=== PATIENT | female | born 1950 | race Caucasian/White ===

== ENCOUNTER 2019-04-24 13:37 | Inpatient (IN) ==
[2019-04-24] MEDS ORDERED: *HR* Labetalol 20 MG/4 ML SYRINGE IVP ONE ×2 (14:59→17:04)
[2019-04-24 15:22] LABS: Basophils % 0.6 %; Eosinophils % 0.8 %; Hematocrit 37.9 % (35.3-44.9); Hemoglobin 11.9 g/dL (11.5-15.4); Lymphocytes # 1.6 K/mcL (0.6-4.6); Lymphocytes % 33.9 %; Mean Corpuscular HGB Conc 31.4 g/dL (31.6-35.5); Mean Corpuscular Hemoglobin 29.3 pg (28.0-33.3); Mean Corpuscular Volume 93.3 fL (83.0-100.0); Mean Platelet Volume 10.1 fL (9.4-12.4); Monocytes # 0.2 K/mcL (0.0-1.3); Monocytes % 5.1 %; Neutrophils # 2.8 K/mcL (1.6-8.9); Platelet Count 218 K/mcL (140-400); Red Blood Count 4.06 M/mcL (3.82-4.97); Red Cell Distribution Width 13.5 % (11.5-14.5); Segmented Neutrophils % 59.6 %; White Blood Count 4.8 K/mcL (4.3-11.1)
[2019-04-24] MEDS ORDERED: Isovue-370 500 ML BOTTLE IVP ONE (15:26)
[2019-04-24 15:38] LABS: BUN/Creatinine Ratio 24 (6-26); Blood Urea Nitrogen 19 mg/dL (8-23); Calcium 9.3 mg/dL (8.6-10.3); Carbon Dioxide 27 mEq/L (23-29); Chloride 103 mEq/L (98-107); Glucose 160 mg/dL (70-105); Osmolality,Calculated 292 (280-300); Potassium 3.2 mEq/L (3.5-5.1); Sodium 138 mEq/L (136-145); Troponin I < 0.03 ng/mL (< 0.04); eGFR For African Americans > 60 (> 60); eGFR For Non-African Americans > 60 (> 60)
[2019-04-24] MEDS ORDERED: 0.9 % Sodium Chloride 1,000 ML IVC ONE (15:48)
[2019-04-24] MEDS ORDERED: Naloxone 0.4 MG/ML INJ IVP PRN (19:37)
[2019-04-24] MEDS ORDERED: Ondansetron 4 MG/2 ML VIAL IVP PRN (21:03)
[2019-04-24] MEDS ORDERED: Benzonatate 100 MG CAPSULE PO PRN (21:10)
[2019-04-24] MEDS ORDERED: *HR* HYDROcodone/Acet 5/325 mg TABLET PO PRN (21:10)
[2019-04-24] MEDS ORDERED: Fluticasone Propionate Nasal 50 MCG/SPRAY BOTTLE NS PRN (21:10)
[2019-04-24] MEDS ORDERED: D5% in Water 1,000 ML IVC PRN (21:11)
[2019-04-24] MEDS ORDERED: *HR* Dextrose 50 % in Water (Syg) 50 ML SYRINGE IVP PRN (21:11)
[2019-04-24] MEDS ORDERED: Dextrose Gel 15 GM/37.5 ML TUBE PO PRN ×2 (21:11)
[2019-04-24] MEDS: Insulin DETEMIR 100 UNIT/ML X5UNITS SQ SCH (22:08)
[2019-04-24] MEDS: amLODIPine 5 MG TABLET PO SCH (23:33)
[2019-04-24] MEDS: hydroCHLOROthiazide 25 MG TABLET PO SCH (23:33)
[2019-04-24] MEDS: Lisinopril 20 MG TABLET PO SCH (23:34)
[2019-04-25 00:03] LABS: Bilirubin,Urine Negative (Negative); Blood,Urine Negative (Negative); Clarity,Urine Clear (Clear); Color,Urine Yellow (Yellow); Glucose,Urine (UA) 100 mg/dL (Normal); Ketones,Urine Negative (Negative); Leukocyte Esterase,Urine Small (Negative); Nitrite,Urine Negative (Negative); Protein,Urine Negative (Neg-Trace); Specific Gravity,Urine > 1.030 (1.010-1.025); Urobilinogen,Urine Normal (Normal)
[2019-04-25 00:05] LABS: Bacteria,Urine None Seen per hpf (None-Few); Hyaline Casts,Urine None Seen per lpf (None-Few); RBC,Urine 0-3 per hpf (0-3); Squamous Epithelial Cell,Urine Many per lpf (None-Few)
[2019-04-25 06:45] LABS: Hematocrit 35.3 % (35.3-44.9); Hemoglobin 11.6 g/dL (11.5-15.4); Mean Corpuscular HGB Conc 32.9 g/dL (31.6-35.5); Mean Corpuscular Hemoglobin 28.9 pg (28.0-33.3); Mean Platelet Volume 10.2 fL (9.4-12.4); Platelet Count 211 K/mcL (140-400); Red Blood Count 4.01 M/mcL (3.82-4.97); Red Cell Distribution Width 13.7 % (11.5-14.5); White Blood Count 3.9 K/mcL (4.3-11.1)
[2019-04-25 07:08] LABS: BUN/Creatinine Ratio 17 (6-26); Blood Urea Nitrogen 14 mg/dL (8-23); Calcium 8.9 mg/dL (8.6-10.3); Carbon Dioxide 27 mEq/L (23-29); Chloride 104 mEq/L (98-107); Glucose 205 mg/dL (70-105); Osmolality,Calculated 300 (280-300); Potassium 3.3 mEq/L (3.5-5.1); Sodium 142 mEq/L (136-145); eGFR For African Americans > 60 (> 60); eGFR For Non-African Americans > 60 (> 60)
[2019-04-25 07:15] LABS: Estimated Average Glucose 169 mg/dl
[2019-04-25] MEDS ORDERED: amLODIPine 5 MG TABLET PO SCH (09:00)
[2019-04-25] MEDS ORDERED: Lisinopril 20 MG TABLET PO SCH (09:00)
[2019-04-25] MEDS: Lisinopril 20 MG TABLET PO SCH (10:11)
[2019-04-25] MEDS: FLUoxetine HCl 10 MG CAPSULE PO SCH (10:11)
[2019-04-25] MEDS: Insulin LISPRO 300 UNITS/3 ML VIAL SQ SCH ×3 (10:12→17:02)
[2019-04-25] MEDS: Aspirin Enteric Coated 81 MG Tablet PO SCH (10:12)
[2019-04-25] MEDS: amLODIPine 5 MG TABLET PO SCH (10:12)
[2019-04-25] MEDS: Cholecalciferol (D-3) 1,000 UNIT (25MCG) TABLET PO SCH (10:12)
[2019-04-25] MEDS ORDERED: amLODIPine 5 MG TABLET PO ONE (16:23)
[2019-04-25] MEDS ORDERED: hydroCHLOROthiazide 25 MG TABLET PO SCH (21:00)
[2019-04-25] MEDS: hydroCHLOROthiazide 25 MG TABLET PO SCH (21:33)
[2019-04-25] MEDS: Insulin DETEMIR 100 UNIT/ML X5UNITS SQ SCH (21:34)
[2019-04-26 04:23] LABS: Hematocrit 36.4 % (35.3-44.9); Hemoglobin 11.7 g/dL (11.5-15.4); Mean Corpuscular HGB Conc 32.1 g/dL (31.6-35.5); Mean Corpuscular Hemoglobin 29.3 pg (28.0-33.3); Mean Platelet Volume 10.3 fL (9.4-12.4); Platelet Count 193 K/mcL (140-400); Red Cell Distribution Width 13.7 % (11.5-14.5)
[2019-04-26 04:43] LABS: BUN/Creatinine Ratio 16 (6-26); Blood Urea Nitrogen 15 mg/dL (8-23); Calcium 9.9 mg/dL (8.6-10.3); Carbon Dioxide 26 mEq/L (23-29); Chloride 101 mEq/L (98-107); Glucose 180 mg/dL (70-105); Osmolality,Calculated 285 (280-300); Potassium 3.2 mEq/L (3.5-5.1); Sodium 135 mEq/L (136-145); eGFR For African Americans > 60 (> 60); eGFR For Non-African Americans > 60 (> 60)
[2019-04-26] MEDS: Insulin LISPRO 300 UNITS/3 ML VIAL SQ SCH ×3 (08:22→16:36)
[2019-04-26] MEDS ORDERED: Acetaminophen 325 MG TABLET PO PRN (09:40)
[2019-04-26] MEDS: Metoprolol XL (24 HR) Succ 25 MG TAB.ER.24H PO SCH (10:15)
[2019-04-26] MEDS: Cholecalciferol (D-3) 1,000 UNIT (25MCG) TABLET PO SCH (10:15)
[2019-04-26] MEDS: Lisinopril 20 MG TABLET PO SCH (10:15)
[2019-04-26] MEDS: amLODIPine 5 MG TABLET PO SCH (10:15)
[2019-04-26] MEDS: FLUoxetine HCl 10 MG CAPSULE PO SCH (10:15)
[2019-04-26] MEDS: Aspirin Enteric Coated 81 MG Tablet PO SCH (10:16)
[2019-04-26] MEDS: *HR* Heparin 5,000 UNIT/ML VIAL SQ SCH ×2 (13:12→20:41)
[2019-04-26] MEDS ORDERED: amLODIPine 5 MG TABLET PO ONE (15:07)
[2019-04-26] MEDS: hydrALAZINE 25 MG TABLET PO SCH ×2 (16:36→23:22)
[2019-04-26] MEDS: hydroCHLOROthiazide 25 MG TABLET PO SCH (20:42)
[2019-04-26] MEDS: Insulin DETEMIR 100 UNIT/ML X5UNITS SQ SCH (20:42)
[2019-04-27 02:16] LABS: Hematocrit 36.8 % (35.3-44.9); Hemoglobin 12.2 g/dL (11.5-15.4); Mean Corpuscular HGB Conc 33.2 g/dL (31.6-35.5); Mean Corpuscular Hemoglobin 29.5 pg (28.0-33.3); Mean Corpuscular Volume 88.9 fL (83.0-100.0); Mean Platelet Volume 10.9 fL (9.4-12.4); Platelet Count 210 K/mcL (140-400); Red Blood Count 4.14 M/mcL (3.82-4.97); Red Cell Distribution Width 13.7 % (11.5-14.5); White Blood Count 5.2 K/mcL (4.3-11.1)
[2019-04-27 02:42] LABS: BUN/Creatinine Ratio 23 (6-26); Blood Urea Nitrogen 19 mg/dL (8-23); Calcium 9.6 mg/dL (8.6-10.3); Carbon Dioxide 26 mEq/L (23-29); Chloride 102 mEq/L (98-107); Glucose 203 mg/dL (70-105); Magnesium 1.7 mg/dL (1.6-2.6); Osmolality,Calculated 288 (280-300); Phosphorous 3.6 mg/dL (2.7-4.5); Potassium 3.4 mEq/L (3.5-5.1); Sodium 135 mEq/L (136-145); eGFR For African Americans > 60 (> 60); eGFR For Non-African Americans > 60 (> 60)
[2019-04-27] MEDS: *HR* Heparin 5,000 UNIT/ML VIAL SQ SCH (05:29)
[2019-04-27 07:39] VITALS: BP 136/93
[2019-04-27] MEDS: Aspirin Enteric Coated 81 MG Tablet PO SCH (08:02)
[2019-04-27] MEDS: FLUoxetine HCl 10 MG CAPSULE PO SCH (08:03)
[2019-04-27] MEDS: Lisinopril 20 MG TABLET PO SCH (08:03)
[2019-04-27] MEDS: amLODIPine 5 MG TABLET PO SCH (08:03)
[2019-04-27] MEDS: hydrALAZINE 25 MG TABLET PO SCH (08:03)
[2019-04-27] MEDS: Cholecalciferol (D-3) 1,000 UNIT (25MCG) TABLET PO SCH (08:03)
[2019-04-27] MEDS: Metoprolol XL (24 HR) Succ 25 MG TAB.ER.24H PO SCH (08:04)
[2019-04-27] MEDS: Insulin LISPRO 300 UNITS/3 ML VIAL SQ SCH ×2 (08:04→12:39)
== END 2019-04-27 15:49 | disposition home or self-care (01) | DRG 305 ==
LOC: 2NENU 13:37 → EMEROOARM 13:37 → SUATTDRO 19:56 → 2NENU 21:19 → SUATTDRO 04-25 15:02
PROVIDERS: ADMIT Internal Medicine; ATTEND Internal Medicine

== ENCOUNTER 2019-11-16 14:52 | Inpatient (IN) ==
[2019-11-16 15:38] LABS: Basophils % 0.5 %; Eosinophils # 0.1 K/mcL (0.0-0.6); Eosinophils % 1.1 %; Hematocrit 34.9 % (35.3-44.9); Immature Granulocytes % 0.2 % (0-4); Lymphocytes # 2.5 K/mcL (0.6-4.6); Mean Corpuscular HGB Conc 31.5 g/dL (31.6-35.5); Mean Corpuscular Hemoglobin 29.6 pg (28.0-33.3); Mean Corpuscular Volume 94.1 fL (83.0-100.0); Mean Platelet Volume 10.1 fL (9.4-12.4); Monocytes # 0.4 K/mcL (0.0-1.3); Monocytes % 7.3 %; Neutrophils # 2.6 K/mcL (1.6-8.9); Platelet Count 225 K/mcL (140-400); Red Blood Count 3.71 M/mcL (3.82-4.97); Red Cell Distribution Width 14.7 % (11.5-14.5); Segmented Neutrophils % 46.9 %; White Blood Count 5.6 K/mcL (4.3-11.1)
[2019-11-16 15:56] LABS: BUN/Creatinine Ratio 15 (6-26); Blood Urea Nitrogen 27 mg/dL (8-23); Calcium 9.9 mg/dL (8.6-10.3); Carbon Dioxide 26 mEq/L (23-29); Chloride 101 mEq/L (98-107); Glucose 137 mg/dL (70-105); Osmolality,Calculated 289 (280-300); Potassium 4.5 mEq/L (3.5-5.1); Sodium 136 mEq/L (136-145); Troponin I < 0.03 ng/mL (< 0.04); eGFR For African Americans 33 (> 60); eGFR For Non-African Americans 28 (> 60)
[2019-11-16] MEDS ORDERED: 0.9 % Sodium Chloride 500 ML IVC ONE (16:21)
[2019-11-16] MEDS ORDERED: Nitroglycerin 0.4 MG TAB.SUBL SL PRN (17:01)
[2019-11-16] MEDS ORDERED: Aspirin 325 MG TABLET PO ONE ×2 (17:01→17:11)
[2019-11-16] MEDS ORDERED: Ondansetron 4 MG/2 ML VIAL IVP PRN (17:01)
[2019-11-16] MEDS ORDERED: Morphine Sulfate 2 MG/ML SYRINGE IVP PRN (17:01)
[2019-11-16] MEDS ORDERED: Dextrose Gel 15 GM/37.5 ML TUBE PO PRN ×2 (17:39)
[2019-11-16] MEDS ORDERED: D5% in Water 1,000 ML IVC PRN (17:39)
[2019-11-16] MEDS ORDERED: *HR* Dextrose 50 % in Water (Vial) 50 ML VIAL IVP PRN (17:39)
[2019-11-16 18:00] LABS: Magnesium 1.9 mg/dL (1.6-2.6)
[2019-11-16] MEDS: *HR* Heparin 5,000 UNIT/ML VIAL SQ SCH (18:06)
[2019-11-16] MEDS: 0.9 % Sodium Chloride 1,000 ML IVC SCH (18:07)
[2019-11-16] MEDS: Insulin LISPRO 300 UNITS/3 ML VIAL SQ SCH (20:35)
[2019-11-16] MEDS: hydrALAZINE 25 MG TABLET PO SCH (20:36)
[2019-11-16] MEDS: Gabapentin 300 MG CAPSULE PO SCH (20:36)
[2019-11-16] MEDS: FLUoxetine 20 MG CAPSULE PO SCH (20:36)
[2019-11-16] MEDS ORDERED: hydroCHLOROthiazide 25 MG TABLET PO SCH (21:00)
[2019-11-17] MEDS: 0.9 % Sodium Chloride 1,000 ML IVC SCH (03:49)
[2019-11-17 04:06] LABS: Prothrombin Time 11.6 Seconds (9.4-12.1)
[2019-11-17 04:11] LABS: White Blood Count 4.4 K/mcL (4.3-11.1)
[2019-11-17 04:12] LABS: Basophils % 0.5 %; Eosinophils # 0.1 K/mcL (0.0-0.6); Hematocrit 32.5 % (35.3-44.9); Hemoglobin 10.1 g/dL (11.5-15.4); Lymphocytes # 2.5 K/mcL (0.6-4.6); Lymphocytes % 57.4 %; Mean Corpuscular HGB Conc 31.1 g/dL (31.6-35.5); Mean Corpuscular Hemoglobin 28.8 pg (28.0-33.3); Mean Corpuscular Volume 92.6 fL (83.0-100.0); Mean Platelet Volume 9.9 fL (9.4-12.4); Monocytes # 0.4 K/mcL (0.0-1.3); Monocytes % 8.6 %; Neutrophils # 1.4 K/mcL (1.6-8.9); Platelet Count 201 K/mcL (140-400); Red Blood Count 3.51 M/mcL (3.82-4.97); Red Cell Distribution Width 14.5 % (11.5-14.5); Segmented Neutrophils % 31.5 %
[2019-11-17 04:18] LABS: Alanine Aminotransferase 21 Units/L (7-52); Albumin 3.8 g/dL (3.5-5.7); Albumin/Globulin Ratio 1.2 (1.1-2.2); Alkaline Phosphatase 87 Units/L (34-104); Aspartate Amino Transferase 23 Units/L (13-39); BUN/Creatinine Ratio 21 (6-26); Bilirubin,Total 0.5 mg/dL (0.3-1.0); Blood Urea Nitrogen 23 mg/dL (8-23); Calcium 9.4 mg/dL (8.6-10.3); Carbon Dioxide 24 mEq/L (23-29); Chloride 108 mEq/L (98-107); Globulin 3.2 g/dL (2.4-3.5); Glucose 133 mg/dL (70-105); Magnesium 1.8 mg/dL (1.6-2.6); Osmolality,Calculated 292 (280-300); Potassium 4.3 mEq/L (3.5-5.1); Sodium 138 mEq/L (136-145); eGFR For African Americans > 60 (> 60); eGFR For Non-African Americans 50 (> 60)
[2019-11-17] MEDS: *HR* Heparin 5,000 UNIT/ML VIAL SQ SCH ×2 (05:00→17:52)
[2019-11-17] MEDS ORDERED: Regadenoson 0.4 MG/5 ML SYRINGE IVP ONE (06:21)
[2019-11-17] MEDS: Insulin LISPRO 300 UNITS/3 ML VIAL SQ SCH ×4 (07:54→21:45)
[2019-11-17] MEDS: Cholecalciferol (D-3) 1,000 UNIT (25MCG) TABLET PO SCH (11:45)
[2019-11-17] MEDS: Aspirin 81 MG TAB.CHEW PO SCH (11:46)
[2019-11-17] MEDS: amLODIPine 5 MG TABLET PO SCH (11:46)
[2019-11-17] MEDS: hydrALAZINE 25 MG TABLET PO SCH ×2 (11:46→21:46)
[2019-11-17] MEDS ORDERED: Perflutren Lipid Microsphere 1.3 ML in 0.9 % Sodium Chloride 8.7 ML IVP ONE (20:42)
[2019-11-17] MEDS: FLUoxetine 20 MG CAPSULE PO SCH (21:46)
[2019-11-17] MEDS: Gabapentin 300 MG CAPSULE PO SCH (21:46)
[2019-11-18] MEDS: *HR* Heparin 5,000 UNIT/ML VIAL SQ SCH (04:48)
[2019-11-18 06:17] LABS: Basophils % 0.7 %; Eosinophils # 0.1 K/mcL (0.0-0.6); Eosinophils % 1.7 %; Hematocrit 34.7 % (35.3-44.9); Hemoglobin 10.5 g/dL (11.5-15.4); Lymphocytes # 2.2 K/mcL (0.6-4.6); Lymphocytes % 52.7 %; Mean Corpuscular HGB Conc 30.3 g/dL (31.6-35.5); Mean Corpuscular Hemoglobin 28.2 pg (28.0-33.3); Mean Platelet Volume 10.3 fL (9.4-12.4); Monocytes # 0.3 K/mcL (0.0-1.3); Monocytes % 7.8 %; Neutrophils # 1.5 K/mcL (1.6-8.9); Platelet Count 200 K/mcL (140-400); Red Blood Count 3.73 M/mcL (3.82-4.97); Segmented Neutrophils % 37.1 %; White Blood Count 4.1 K/mcL (4.3-11.1)
[2019-11-18 06:39] LABS: BUN/Creatinine Ratio 19 (6-26); Blood Urea Nitrogen 20 mg/dL (8-23); Calcium 9.7 mg/dL (8.6-10.3); Carbon Dioxide 23 mEq/L (23-29); Chloride 105 mEq/L (98-107); Glucose 114 mg/dL (70-105); Osmolality,Calculated 283 (280-300); Sodium 135 mEq/L (136-145); eGFR For African Americans > 60 (> 60); eGFR For Non-African Americans 52 (> 60)
[2019-11-18 07:05] VITALS: BP 121/72
[2019-11-18] MEDS: Insulin LISPRO 300 UNITS/3 ML VIAL SQ SCH (07:56)
[2019-11-18] MEDS: Cholecalciferol (D-3) 1,000 UNIT (25MCG) TABLET PO SCH (09:30)
[2019-11-18] MEDS: amLODIPine 5 MG TABLET PO SCH (09:30)
[2019-11-18] MEDS: Aspirin 81 MG TAB.CHEW PO SCH (09:31)
[2019-11-18] MEDS: hydrALAZINE 25 MG TABLET PO SCH (09:31)
== END 2019-11-18 12:58 | disposition home or self-care (01) | DRG 313 ==
LOC: EMEROOARM 14:52 → 3BNU 14:52
PROVIDERS: ADMIT Internal Medicine; ATTEND Internal Medicine

== ENCOUNTER 2020-05-27 20:43 | Inpatient (IN) ==
[2020-05-27 21:42] LABS: INR 1.2
[2020-05-27 21:44] LABS: Activated Partial Thrombo Time 26.1 Seconds (26.0-36.0)
[2020-05-27 22:00] LABS: Alanine Aminotransferase 18 Units/L (7-52); Albumin/Globulin Ratio 1.1 (1.1-2.2); Alkaline Phosphatase 67 Units/L (34-104); Aspartate Amino Transferase 26 Units/L (13-39); BUN/Creatinine Ratio 18 (6-26); Bilirubin,Direct 0.1 mg/dL (0.0-0.2); Bilirubin,Indirect 0.4 mg/dL (0.0-1.0); Bilirubin,Total 0.5 mg/dL (0.3-1.0); Blood Urea Nitrogen 14 mg/dL (8-23); Carbon Dioxide 21 mEq/L (23-29); Chloride 100 mEq/L (98-107); Globulin 3.7 g/dL (2.4-3.5); Glucose 194 mg/dL (70-105); Lactate Dehydrogenase 213 Units/L (140-271); Magnesium 1.6 mg/dL (1.6-2.6); Osmolality,Calculated 276 (280-300); Phosphorous 2.6 mg/dL (2.7-4.5); Potassium 3.3 mEq/L (3.5-5.1); Sodium 130 mEq/L (136-145); Total Protein 7.7 g/dL (6.4-8.9); Troponin I < 0.03 ng/mL (< 0.04); eGFR For African Americans > 60 (> 60); eGFR For Non-African Americans > 60 (> 60)
[2020-05-27 22:01] LABS: Basophils % 0.3 %; Hematocrit 35.7 % (35.3-44.9); Hemoglobin 11.3 g/dL (11.5-15.4); Immature Granulocytes % 0.3 % (0-4); Lymphocytes # 0.9 K/mcL (0.6-4.6); Lymphocytes % 24.9 %; Mean Corpuscular HGB Conc 31.7 g/dL (31.6-35.5); Mean Corpuscular Hemoglobin 27.9 pg (28.0-33.3); Mean Corpuscular Volume 88.1 fL (83.0-100.0); Mean Platelet Volume 10.3 fL (9.4-12.4); Monocytes # 0.2 K/mcL (0.0-1.3); Monocytes % 6.8 %; Neutrophils # 2.4 K/mcL (1.6-8.9); Platelet Count 176 K/mcL (140-400); Red Blood Count 4.05 M/mcL (3.82-4.97); Red Cell Distribution Width 13.7 % (11.5-14.5); Segmented Neutrophils % 67.7 %; White Blood Count 3.5 K/mcL (4.3-11.1)
[2020-05-27 22:06] LABS: Bilirubin,Urine Small (Negative); Blood,Urine Negative (Negative); Clarity,Urine Clear (Clear); Color,Urine Yellow (Yellow); Glucose,Urine (UA) Normal (Normal); Ketones,Urine 15 mg/dL (Negative); Leukocyte Esterase,Urine Negative (Negative); Nitrite,Urine Positive (Negative); Protein,Urine 100 mg/dL (Neg-Trace); Specific Gravity,Urine 1.025 (1.010-1.025); Urobilinogen,Urine Normal (Normal)
[2020-05-27 22:14] LABS: RBC,Urine 0-3 per hpf (0-3); Squamous Epithelial Cell,Urine Few per hpf (None-Few); WBC,Urine 0-3 per hpf (0-3)
[2020-05-27] MEDS ORDERED: Azithromycin 500 MG in 0.9 % Sodium Chloride 250 ML IVPB ONE (22:14)
[2020-05-27] MEDS ORDERED: Ipratropium/Albuterol Neb 3 ML IH ONE (22:14)
[2020-05-27 22:15] LABS: Bacteria,Urine Many per hpf (None-Few); Mucus,Urine Moderate per lpf (None-Few)
[2020-05-27 22:15] LABS: Ferritin 255 ng/mL (10-120)
[2020-05-27] MEDS ORDERED: Ondansetron 4 MG/2 ML VIAL IVP ONE (22:17)
[2020-05-27] MEDS ORDERED: Potassium Chloride Elixir 20 MEQ/15 ML UDC PO ONE (22:17)
[2020-05-27] MEDS ORDERED: levoFLOXacin 750 MG/150 ML 750 MG/150 ML BAG IVPB ONE (22:26)
[2020-05-27] MEDS ORDERED: Naloxone 0.4 MG/ML INJ IVP PRN (22:29)
[2020-05-27] MEDS ORDERED: Ondansetron 4 MG/2 ML VIAL IVP PRN (22:29)
[2020-05-27] MEDS ORDERED: *HR* Dextrose 50 % in Water (Vial) 50 ML VIAL IVP PRN (22:33)
[2020-05-27] MEDS ORDERED: Dextrose Gel 15 GM/37.5 ML TUBE PO PRN ×2 (22:33)
[2020-05-27] MEDS ORDERED: D5% in Water 1,000 ML IVC PRN (22:33)
[2020-05-27 22:40] LABS: C-Reactive Protein 20 mg/L (Less than 10)
[2020-05-28] MEDS: *HR* Enoxaparin 40 MG/0.4 ML SYRINGE SQ SCH (04:26)
[2020-05-28 06:05] LABS: Hematocrit 33.7 % (35.3-44.9); Hemoglobin 10.6 g/dL (11.5-15.4); Immature Granulocytes % 0.4 % (0-4); Lymphocytes # 0.5 K/mcL (0.6-4.6); Lymphocytes % 22.5 %; Mean Corpuscular HGB Conc 31.5 g/dL (31.6-35.5); Mean Corpuscular Hemoglobin 27.4 pg (28.0-33.3); Mean Corpuscular Volume 87.1 fL (83.0-100.0); Mean Platelet Volume 10.1 fL (9.4-12.4); Monocytes # 0.1 K/mcL (0.0-1.3); Neutrophils # 1.8 K/mcL (1.6-8.9); Platelet Count 169 K/mcL (140-400); Red Blood Count 3.87 M/mcL (3.82-4.97); Red Cell Distribution Width 13.7 % (11.5-14.5); Segmented Neutrophils % 74.1 %; White Blood Count 2.4 K/mcL (4.3-11.1)
[2020-05-28 06:39] LABS: INR 1.1; Prothrombin Time 13.2 Seconds (9.4-12.1)
[2020-05-28 08:02] LABS: BUN/Creatinine Ratio 17 (6-26); Blood Urea Nitrogen 13 mg/dL (8-23); Carbon Dioxide 22 mEq/L (23-29); Chloride 101 mEq/L (98-107); Glucose 262 mg/dL (70-105); Magnesium 1.8 mg/dL (1.6-2.6); Osmolality,Calculated 285 (280-300); Potassium 4.4 mEq/L (3.5-5.1); Sodium 133 mEq/L (136-145); eGFR For African Americans > 60 (> 60); eGFR For Non-African Americans > 60 (> 60)
[2020-05-28 08:03] LABS: Alanine Aminotransferase 17 Units/L (7-52); Albumin 3.8 g/dL (3.5-5.7); Alkaline Phosphatase 63 Units/L (34-104); Aspartate Amino Transferase 22 Units/L (13-39); Ferritin 261 ng/mL (10-120); Lactate Dehydrogenase 204 Units/L (140-271)
[2020-05-28] MEDS ORDERED: Benzonatate 100 MG CAPSULE PO PRN (08:35)
[2020-05-28] MEDS ORDERED: traZODone 50 MG TABLET PO PRN (08:35)
[2020-05-28] MEDS ORDERED: Chloraseptic Spray 177 ML BOTTLE MM PRN (08:35)
[2020-05-28] MEDS ORDERED: Furosemide 20 MG/2 ML VIAL IVP SCH (09:00)
[2020-05-28] MEDS ORDERED: levoFLOXacin 250 MG TABLET PO SCH (09:00)
[2020-05-28] MEDS ORDERED: Dexamethasone Sodium Phos/PF 10 MG/ML VIAL IVP SCH (09:00)
[2020-05-28 09:22] LABS: Albumin/Globulin Ratio 1.1 (1.1-2.2); Bilirubin,Total 0.5 mg/dL (0.3-1.0); C-Reactive Protein 25 mg/L (Less than 10); Globulin 3.6 g/dL (2.4-3.5); Phosphorous 3.5 mg/dL (2.7-4.5); Total Protein 7.4 g/dL (6.4-8.9)
[2020-05-28] MEDS: Insulin LISPRO 300 UNITS/3 ML VIAL SUBQ SCH ×3 (09:34→18:09)
[2020-05-28] MEDS: Chlorhexidine Rinse 15 ML MOUTHWASH MM SCH ×2 (09:35→20:36)
[2020-05-28] MEDS: Artificial Tears SOLN 15 ML BOTTLE BOTH EYES SCH ×2 (09:35→20:37)
[2020-05-28] MEDS: Saline Nasal Spray 44 ML BOTTLE NS SCH ×4 (09:35→20:37)
[2020-05-28] MEDS: Multivit/Ca/Min/Fe/FA 1 TAB TABLET PO SCH (09:39)
[2020-05-28] MEDS ORDERED: Ipratropium 1 PUFF INHALER IH SCH (10:00)
[2020-05-28 10:39] LABS: ABG Base Excess -2 mEq/L (-2 to 3); ABG HCO3 21 mEq/L (21-27); ABG Oxygen Saturation 80 % (95-98); ABG PCO2 29 mmHg (35-45); ABG PH 7.46 pH Units (7.32-7.45); ABG PO2 41 mmHg (85-104); ABG TCO2 22 mEq/L (20-26)
[2020-05-28] MEDS: Ipratropium 1 PUFF INHALER IH SCH ×4 (15:04→23:47)
[2020-05-28] MEDS: Gabapentin 300 MG CAPSULE PO SCH (20:36)
[2020-05-28] MEDS: FLUoxetine 20 MG CAPSULE PO SCH (20:36)
[2020-05-28] MEDS ORDERED: Insulin DETEMIR 100 UNIT/ML X5UNITS SUBQ SCH (21:00)
[2020-05-29] MEDS: Saline Nasal Spray 44 ML BOTTLE NS SCH ×5 (00:30→21:26)
[2020-05-29] MEDS: Ipratropium 1 PUFF INHALER IH SCH ×6 (03:37→23:42)
[2020-05-29] MEDS: *HR* Enoxaparin 40 MG/0.4 ML SYRINGE SQ SCH (05:23)
[2020-05-29 06:21] LABS: Basophils % 0.1 %; Hematocrit 34.4 % (35.3-44.9); Hemoglobin 10.8 g/dL (11.5-15.4); Immature Granulocytes % 0.3 % (0-4); Lymphocytes % 9.1 %; Mean Corpuscular HGB Conc 31.4 g/dL (31.6-35.5); Mean Corpuscular Hemoglobin 27.5 pg (28.0-33.3); Mean Corpuscular Volume 87.5 fL (83.0-100.0); Mean Platelet Volume 10.1 fL (9.4-12.4); Monocytes # 0.5 K/mcL (0.0-1.3); Monocytes % 6.5 %; Platelet Count 205 K/mcL (140-400); Red Blood Count 3.93 M/mcL (3.82-4.97); Red Cell Distribution Width 13.3 % (11.5-14.5)
[2020-05-29 06:22] LABS: Lymphocytes # 0.7 K/mcL (0.6-4.6); White Blood Count 7.1 K/mcL (4.3-11.1)
[2020-05-29 06:45] LABS: Alanine Aminotransferase 18 Units/L (7-52); Albumin 3.8 g/dL (3.5-5.7); Alkaline Phosphatase 61 Units/L (34-104); Aspartate Amino Transferase 21 Units/L (13-39); BUN/Creatinine Ratio 24 (6-26); Bilirubin,Total 0.4 mg/dL (0.3-1.0); Blood Urea Nitrogen 20 mg/dL (8-23); Calcium 9.4 mg/dL (8.6-10.3); Carbon Dioxide 22 mEq/L (23-29); Chloride 101 mEq/L (98-107); Globulin 3.7 g/dL (2.4-3.5); Glucose 231 mg/dL (70-105); Lactate Dehydrogenase 199 Units/L (140-271); Magnesium 2.1 mg/dL (1.6-2.6); Osmolality,Calculated 286 (280-300); Phosphorous 3.8 mg/dL (2.7-4.5); Potassium 3.6 mEq/L (3.5-5.1); Sodium 133 mEq/L (136-145); Total Protein 7.5 g/dL (6.4-8.9); eGFR For African Americans > 60 (> 60); eGFR For Non-African Americans > 60 (> 60)
[2020-05-29 06:59] LABS: Ferritin 306 ng/mL (10-120)
[2020-05-29 07:48] LABS: C-Reactive Protein 15 mg/L (Less than 10)
[2020-05-29] MEDS: Insulin LISPRO 300 UNITS/3 ML VIAL SUBQ SCH ×3 (08:45→17:22)
[2020-05-29] MEDS: Chlorhexidine Rinse 15 ML MOUTHWASH MM SCH ×2 (08:46→19:47)
[2020-05-29] MEDS: Artificial Tears SOLN 15 ML BOTTLE BOTH EYES SCH ×2 (08:46→21:25)
[2020-05-29] MEDS: Dexamethasone Sodium Phos/PF 10 MG/ML VIAL IVP SCH (08:46)
[2020-05-29] MEDS: Furosemide 20 MG/2 ML VIAL IVP SCH (08:46)
[2020-05-29] MEDS: Multivit/Ca/Min/Fe/FA 1 TAB TABLET PO SCH (08:47)
[2020-05-29] MEDS: Cholecalciferol (D-3) 1,000 UNIT (25MCG) TABLET PO SCH (08:47)
[2020-05-29] MEDS ORDERED: levoFLOXacin 250 MG TABLET PO ONE (16:08)
[2020-05-29] MEDS: FLUoxetine 20 MG CAPSULE PO SCH (19:47)
[2020-05-29] MEDS: Gabapentin 300 MG CAPSULE PO SCH (19:47)
[2020-05-29] MEDS: Insulin DETEMIR 100 UNIT/ML X5UNITS SUBQ SCH (21:00)
[2020-05-30] MEDS: Saline Nasal Spray 44 ML BOTTLE NS SCH ×4 (02:00→21:00)
[2020-05-30] MEDS: Ipratropium 1 PUFF INHALER IH SCH ×5 (04:04→20:18)
[2020-05-30] MEDS: *HR* Enoxaparin 40 MG/0.4 ML SYRINGE SQ SCH (05:26)
[2020-05-30] MEDS: Acetaminophen 325 MG TABLET PO PRN ×2 (05:59→20:00)
[2020-05-30 06:37] LABS: Basophils % 0.1 %; Hematocrit 35.8 % (35.3-44.9); Hemoglobin 11.7 g/dL (11.5-15.4); Lymphocytes # 0.6 K/mcL (0.6-4.6); Mean Corpuscular HGB Conc 32.7 g/dL (31.6-35.5); Mean Corpuscular Hemoglobin 28.5 pg (28.0-33.3); Mean Corpuscular Volume 87.1 fL (83.0-100.0); Mean Platelet Volume 9.7 fL (9.4-12.4); Monocytes # 0.4 K/mcL (0.0-1.3); Monocytes % 4.8 %; Neutrophils # 7.8 K/mcL (1.6-8.9); Platelet Count 242 K/mcL (140-400); Red Blood Count 4.11 M/mcL (3.82-4.97); Red Cell Distribution Width 13.6 % (11.5-14.5); Segmented Neutrophils % 87.1 %; White Blood Count 8.9 K/mcL (4.3-11.1)
[2020-05-30 07:02] LABS: Alanine Aminotransferase 19 Units/L (7-52); Albumin 3.9 g/dL (3.5-5.7); Alkaline Phosphatase 65 Units/L (34-104); Aspartate Amino Transferase 20 Units/L (13-39); BUN/Creatinine Ratio 30 (6-26); Bilirubin,Total 0.5 mg/dL (0.3-1.0); Blood Urea Nitrogen 28 mg/dL (8-23); Calcium 9.6 mg/dL (8.6-10.3); Carbon Dioxide 24 mEq/L (23-29); Chloride 97 mEq/L (98-107); Globulin 3.9 g/dL (2.4-3.5); Glucose 188 mg/dL (70-105); Lactate Dehydrogenase 218 Units/L (140-271); Magnesium 1.8 mg/dL (1.6-2.6); Osmolality,Calculated 286 (280-300); Phosphorous 2.3 mg/dL (2.7-4.5); Potassium 3.8 mEq/L (3.5-5.1); Sodium 133 mEq/L (136-145); Total Protein 7.8 g/dL (6.4-8.9); eGFR For African Americans > 60 (> 60); eGFR For Non-African Americans 59 (> 60)
[2020-05-30 07:14] LABS: Ferritin 284 ng/mL (10-120)
[2020-05-30] MEDS: Dexamethasone Sodium Phos/PF 10 MG/ML VIAL IVP SCH (08:53)
[2020-05-30] MEDS: Chlorhexidine Rinse 15 ML MOUTHWASH MM SCH ×2 (08:54→20:04)
[2020-05-30] MEDS: Cholecalciferol (D-3) 1,000 UNIT (25MCG) TABLET PO SCH (08:54)
[2020-05-30] MEDS: Furosemide 20 MG/2 ML VIAL IVP SCH (08:54)
[2020-05-30] MEDS: Multivit/Ca/Min/Fe/FA 1 TAB TABLET PO SCH (08:54)
[2020-05-30] MEDS: Insulin LISPRO 300 UNITS/3 ML VIAL SUBQ SCH ×2 (08:55→13:00)
[2020-05-30] MEDS: Artificial Tears SOLN 15 ML BOTTLE BOTH EYES SCH ×2 (09:42→22:00)
[2020-05-30 13:31] LABS: C-Reactive Protein 28 mg/L (Less than 10)
[2020-05-30] MEDS: FLUoxetine 20 MG CAPSULE PO SCH (19:59)
[2020-05-30] MEDS: Gabapentin 300 MG CAPSULE PO SCH (20:02)
[2020-05-30] MEDS: Insulin DETEMIR 100 UNIT/ML X5UNITS SUBQ SCH (20:32)
[2020-05-31] MEDS: Ipratropium 1 PUFF INHALER IH SCH ×6 (00:17→20:37)
[2020-05-31] MEDS: Saline Nasal Spray 44 ML BOTTLE NS SCH ×7 (01:58→16:12)
[2020-05-31] MEDS: *HR* Enoxaparin 40 MG/0.4 ML SYRINGE SQ SCH (05:39)
[2020-05-31] MEDS: Insulin LISPRO 300 UNITS/3 ML VIAL SUBQ SCH ×4 (07:43→16:18)
[2020-05-31 08:05] LABS: Basophils % 0.1 %; Hemoglobin 11.3 g/dL (11.5-15.4); Immature Granulocytes % 0.7 % (0-4); Lymphocytes # 0.6 K/mcL (0.6-4.6); Lymphocytes % 8.3 %; Mean Corpuscular HGB Conc 31.4 g/dL (31.6-35.5); Mean Corpuscular Hemoglobin 27.3 pg (28.0-33.3); Monocytes # 0.4 K/mcL (0.0-1.3); Monocytes % 5.6 %; Platelet Count 258 K/mcL (140-400); Red Blood Count 4.14 M/mcL (3.82-4.97); Red Cell Distribution Width 13.7 % (11.5-14.5); Segmented Neutrophils % 85.3 %; White Blood Count 7.1 K/mcL (4.3-11.1)
[2020-05-31 08:23] LABS: Alanine Aminotransferase 19 Units/L (7-52); Albumin 3.7 g/dL (3.5-5.7); Albumin/Globulin Ratio 0.9 (1.1-2.2); Alkaline Phosphatase 64 Units/L (34-104); Aspartate Amino Transferase 19 Units/L (13-39); BUN/Creatinine Ratio 38 (6-26); Bilirubin,Total 0.6 mg/dL (0.3-1.0); Blood Urea Nitrogen 30 mg/dL (8-23); Calcium 9.5 mg/dL (8.6-10.3); Carbon Dioxide 28 mEq/L (23-29); Chloride 97 mEq/L (98-107); Glucose 219 mg/dL (70-105); Lactate Dehydrogenase 205 Units/L (140-271); Magnesium 2.1 mg/dL (1.6-2.6); Osmolality,Calculated 295 (280-300); Phosphorous 3.4 mg/dL (2.7-4.5); Potassium 3.5 mEq/L (3.5-5.1); Sodium 136 mEq/L (136-145); Total Protein 7.7 g/dL (6.4-8.9); eGFR For African Americans > 60 (> 60); eGFR For Non-African Americans > 60 (> 60)
[2020-05-31 08:30] LABS: Ferritin 381 ng/mL (10-120)
[2020-05-31 08:39] LABS: C-Reactive Protein 52 mg/L (Less than 10)
[2020-05-31] MEDS: Chlorhexidine Rinse 15 ML MOUTHWASH MM SCH ×2 (09:25→20:20)
[2020-05-31] MEDS: Multivit/Ca/Min/Fe/FA 1 TAB TABLET PO SCH (09:25)
[2020-05-31] MEDS: Dexamethasone Sodium Phos/PF 10 MG/ML VIAL IVP SCH (09:26)
[2020-05-31] MEDS: Cholecalciferol (D-3) 1,000 UNIT (25MCG) TABLET PO SCH (09:26)
[2020-05-31] MEDS: Artificial Tears SOLN 15 ML BOTTLE BOTH EYES SCH ×2 (09:27→20:33)
[2020-05-31] MEDS ORDERED: Furosemide 40 MG/4 ML VIAL IVP ONE (14:28)
[2020-05-31] MEDS ORDERED: Insulin LISPRO 300 UNITS/3 ML VIAL SUBQ SCH (14:42)
[2020-05-31] MEDS: FLUoxetine 20 MG CAPSULE PO SCH (20:19)
[2020-05-31] MEDS: Gabapentin 300 MG CAPSULE PO SCH (20:20)
[2020-05-31] MEDS: Insulin DETEMIR 100 UNIT/ML X5UNITS SUBQ SCH (20:20)
[2020-06-01] MEDS: Ipratropium 1 PUFF INHALER IH SCH ×6 (00:24→20:49)
[2020-06-01 01:33] LABS: Basophils % 0.2 %; Hematocrit 35.6 % (35.3-44.9); Hemoglobin 11.5 g/dL (11.5-15.4); Immature Granulocytes % 0.8 % (0-4); Lymphocytes # 0.8 K/mcL (0.6-4.6); Lymphocytes % 13.2 %; Mean Corpuscular HGB Conc 32.3 g/dL (31.6-35.5); Mean Corpuscular Hemoglobin 28.4 pg (28.0-33.3); Mean Corpuscular Volume 87.9 fL (83.0-100.0); Mean Platelet Volume 9.7 fL (9.4-12.4); Monocytes # 0.4 K/mcL (0.0-1.3); Monocytes % 5.7 %; Neutrophils # 5.1 K/mcL (1.6-8.9); Platelet Count 259 K/mcL (140-400); Red Blood Count 4.05 M/mcL (3.82-4.97); Red Cell Distribution Width 13.5 % (11.5-14.5); Segmented Neutrophils % 80.1 %; White Blood Count 6.3 K/mcL (4.3-11.1)
[2020-06-01 01:58] LABS: BUN/Creatinine Ratio 36 (6-26); Blood Urea Nitrogen 26 mg/dL (8-23); C-Reactive Protein 38 mg/L (Less than 10); Calcium 9.3 mg/dL (8.6-10.3); Carbon Dioxide 27 mEq/L (23-29); Chloride 95 mEq/L (98-107); Glucose 227 mg/dL (70-105); Osmolality,Calculated 288 (280-300); Potassium 3.7 mEq/L (3.5-5.1); Sodium 133 mEq/L (136-145); eGFR For African Americans > 60 (> 60); eGFR For Non-African Americans > 60 (> 60)
[2020-06-01 02:13] LABS: Ferritin 436 ng/mL (10-120)
[2020-06-01] MEDS: *HR* Enoxaparin 40 MG/0.4 ML SYRINGE SQ SCH (05:20)
[2020-06-01] MEDS: Saline Nasal Spray 44 ML BOTTLE NS SCH ×7 (07:45→20:24)
[2020-06-01] MEDS: Insulin LISPRO 300 UNITS/3 ML VIAL SUBQ SCH ×3 (08:01→16:54)
[2020-06-01] MEDS: Multivit/Ca/Min/Fe/FA 1 TAB TABLET PO SCH (08:03)
[2020-06-01] MEDS: Cholecalciferol (D-3) 1,000 UNIT (25MCG) TABLET PO SCH (08:03)
[2020-06-01] MEDS: Chlorhexidine Rinse 15 ML MOUTHWASH MM SCH ×2 (08:03→20:23)
[2020-06-01] MEDS: Furosemide 20 MG/2 ML VIAL IVP SCH (08:03)
[2020-06-01] MEDS: Artificial Tears SOLN 15 ML BOTTLE BOTH EYES SCH ×2 (08:04→20:24)
[2020-06-01] MEDS: Dexamethasone Sodium Phos/PF 10 MG/ML VIAL IVP SCH (08:04)
[2020-06-01] MEDS: Gabapentin 300 MG CAPSULE PO SCH (20:23)
[2020-06-01] MEDS: Insulin DETEMIR 100 UNIT/ML X5UNITS SUBQ SCH (20:23)
[2020-06-01] MEDS: FLUoxetine 20 MG CAPSULE PO SCH (20:23)
[2020-06-02] MEDS: Ipratropium 1 PUFF INHALER IH SCH ×7 (00:20→20:42)
[2020-06-02] MEDS: Saline Nasal Spray 44 ML BOTTLE NS SCH ×5 (04:13→20:27)
[2020-06-02] MEDS: *HR* Enoxaparin 40 MG/0.4 ML SYRINGE SQ SCH (05:23)
[2020-06-02 07:21] LABS: Basophils % 0.2 %; Hematocrit 36.7 % (35.3-44.9); Hemoglobin 11.7 g/dL (11.5-15.4); Immature Granulocytes % 0.6 % (0-4); Lymphocytes % 18.5 %; Mean Corpuscular HGB Conc 31.9 g/dL (31.6-35.5); Mean Corpuscular Hemoglobin 27.9 pg (28.0-33.3); Mean Corpuscular Volume 87.6 fL (83.0-100.0); Mean Platelet Volume 9.7 fL (9.4-12.4); Monocytes # 0.4 K/mcL (0.0-1.3); Monocytes % 8.2 %; Neutrophils # 3.8 K/mcL (1.6-8.9); Platelet Count 291 K/mcL (140-400); Red Blood Count 4.19 M/mcL (3.82-4.97); Red Cell Distribution Width 13.5 % (11.5-14.5); Segmented Neutrophils % 72.5 %; White Blood Count 5.2 K/mcL (4.3-11.1)
[2020-06-02 07:45] LABS: BUN/Creatinine Ratio 42 (6-26); Blood Urea Nitrogen 35 mg/dL (8-23); Calcium 9.5 mg/dL (8.6-10.3); Carbon Dioxide 29 mEq/L (23-29); Chloride 96 mEq/L (98-107); Glucose 154 mg/dL (70-105); Osmolality,Calculated 293 (280-300); Potassium 3.2 mEq/L (3.5-5.1); Sodium 136 mEq/L (136-145); eGFR For African Americans > 60 (> 60); eGFR For Non-African Americans > 60 (> 60)
[2020-06-02 07:59] LABS: Ferritin 438 ng/mL (10-120)
[2020-06-02] MEDS: Insulin LISPRO 300 UNITS/3 ML VIAL SUBQ SCH ×3 (08:25→17:21)
[2020-06-02] MEDS: Chlorhexidine Rinse 15 ML MOUTHWASH MM SCH ×2 (08:27→20:26)
[2020-06-02] MEDS: Dexamethasone Sodium Phos/PF 10 MG/ML VIAL IVP SCH (08:27)
[2020-06-02] MEDS: Furosemide 20 MG/2 ML VIAL IVP SCH (08:27)
[2020-06-02] MEDS: Cholecalciferol (D-3) 1,000 UNIT (25MCG) TABLET PO SCH (08:27)
[2020-06-02] MEDS: Multivit/Ca/Min/Fe/FA 1 TAB TABLET PO SCH (08:27)
[2020-06-02] MEDS: Artificial Tears SOLN 15 ML BOTTLE BOTH EYES SCH ×2 (09:29→20:28)
[2020-06-02 10:51] LABS: C-Reactive Protein 22 mg/L (Less than 10)
[2020-06-02] MEDS: FLUoxetine 20 MG CAPSULE PO SCH (20:26)
[2020-06-02] MEDS: Gabapentin 300 MG CAPSULE PO SCH (20:26)
[2020-06-02] MEDS: Insulin DETEMIR 100 UNIT/ML X5UNITS SUBQ SCH (20:26)
[2020-06-03] MEDS: Ipratropium 1 PUFF INHALER IH SCH ×7 (00:36→23:20)
[2020-06-03] MEDS: Saline Nasal Spray 44 ML BOTTLE NS SCH ×6 (01:26→20:22)
[2020-06-03 05:15] LABS: Basophils % 0.2 %; Eosinophils % 0.2 %; Hematocrit 39.4 % (35.3-44.9); Hemoglobin 12.5 g/dL (11.5-15.4); Immature Granulocytes % 0.7 % (0-4); Lymphocytes # 1.1 K/mcL (0.6-4.6); Lymphocytes % 20.6 %; Mean Corpuscular HGB Conc 31.7 g/dL (31.6-35.5); Mean Corpuscular Volume 88.1 fL (83.0-100.0); Mean Platelet Volume 9.5 fL (9.4-12.4); Monocytes # 0.4 K/mcL (0.0-1.3); Monocytes % 7.8 %; Neutrophils # 3.9 K/mcL (1.6-8.9); Platelet Count 320 K/mcL (140-400); Red Blood Count 4.47 M/mcL (3.82-4.97); Red Cell Distribution Width 13.2 % (11.5-14.5); Segmented Neutrophils % 70.5 %; White Blood Count 5.5 K/mcL (4.3-11.1)
[2020-06-03 05:29] LABS: BUN/Creatinine Ratio 46 (6-26); Blood Urea Nitrogen 37 mg/dL (8-23); C-Reactive Protein 15 mg/L (Less than 10); Calcium 9.5 mg/dL (8.6-10.3); Carbon Dioxide 31 mEq/L (23-29); Chloride 95 mEq/L (98-107); Glucose 148 mg/dL (70-105); Osmolality,Calculated 295 (280-300); Potassium 3.4 mEq/L (3.5-5.1); Sodium 137 mEq/L (136-145); eGFR For African Americans > 60 (> 60); eGFR For Non-African Americans > 60 (> 60)
[2020-06-03 05:47] LABS: Ferritin 463 ng/mL (10-120)
[2020-06-03] MEDS: *HR* Enoxaparin 40 MG/0.4 ML SYRINGE SQ SCH (06:01)
[2020-06-03] MEDS: Insulin LISPRO 300 UNITS/3 ML VIAL SUBQ SCH ×3 (08:20→17:22)
[2020-06-03] MEDS: Chlorhexidine Rinse 15 ML MOUTHWASH MM SCH ×2 (08:21→20:23)
[2020-06-03] MEDS: Dexamethasone Sodium Phos/PF 10 MG/ML VIAL IVP SCH (08:21)
[2020-06-03] MEDS: Cholecalciferol (D-3) 1,000 UNIT (25MCG) TABLET PO SCH (08:21)
[2020-06-03] MEDS: Multivit/Ca/Min/Fe/FA 1 TAB TABLET PO SCH (08:21)
[2020-06-03] MEDS: Furosemide 20 MG/2 ML VIAL IVP SCH (08:22)
[2020-06-03] MEDS: Artificial Tears SOLN 15 ML BOTTLE BOTH EYES SCH ×2 (08:22→20:23)
[2020-06-03] MEDS: FLUoxetine 20 MG CAPSULE PO SCH (20:24)
[2020-06-03] MEDS: Gabapentin 300 MG CAPSULE PO SCH (20:24)
[2020-06-03] MEDS: Insulin DETEMIR 100 UNIT/ML X5UNITS SUBQ SCH (20:24)
[2020-06-04] MEDS: Ipratropium 1 PUFF INHALER IH SCH ×6 (03:20→23:30)
[2020-06-04] MEDS: Saline Nasal Spray 44 ML BOTTLE NS SCH ×5 (05:12→20:12)
[2020-06-04] MEDS: *HR* Enoxaparin 40 MG/0.4 ML SYRINGE SQ SCH (05:22)
[2020-06-04 06:44] LABS: Basophils % 0.1 %; Eosinophils % 0.4 %; Hemoglobin 13.3 g/dL (11.5-15.4); Immature Granulocytes % 0.7 % (0-4); Lymphocytes # 1.2 K/mcL (0.6-4.6); Lymphocytes % 18.2 %; Mean Corpuscular HGB Conc 32.4 g/dL (31.6-35.5); Mean Corpuscular Hemoglobin 28.4 pg (28.0-33.3); Mean Corpuscular Volume 87.6 fL (83.0-100.0); Mean Platelet Volume 9.5 fL (9.4-12.4); Monocytes # 0.5 K/mcL (0.0-1.3); Monocytes % 7.5 %; Neutrophils # 4.9 K/mcL (1.6-8.9); Platelet Count 331 K/mcL (140-400); Red Blood Count 4.68 M/mcL (3.82-4.97); Red Cell Distribution Width 13.2 % (11.5-14.5); Segmented Neutrophils % 73.1 %; White Blood Count 6.7 K/mcL (4.3-11.1)
[2020-06-04 07:10] LABS: BUN/Creatinine Ratio 47 (6-26); Blood Urea Nitrogen 41 mg/dL (8-23); Carbon Dioxide 30 mEq/L (23-29); Chloride 93 mEq/L (98-107); Glucose 158 mg/dL (70-105); Osmolality,Calculated 293 (280-300); Potassium 3.4 mEq/L (3.5-5.1); Sodium 135 mEq/L (136-145); eGFR For African Americans > 60 (> 60); eGFR For Non-African Americans > 60 (> 60)
[2020-06-04 07:23] LABS: Ferritin 486 ng/mL (10-120)
[2020-06-04 08:20] LABS: C-Reactive Protein 18 mg/L (Less than 10)
[2020-06-04] MEDS: Artificial Tears SOLN 15 ML BOTTLE BOTH EYES SCH ×2 (08:32→20:12)
[2020-06-04] MEDS: Chlorhexidine Rinse 15 ML MOUTHWASH MM SCH ×2 (08:39→20:12)
[2020-06-04] MEDS: Dexamethasone Sodium Phos/PF 10 MG/ML VIAL IVP SCH (08:40)
[2020-06-04] MEDS: Cholecalciferol (D-3) 1,000 UNIT (25MCG) TABLET PO SCH (08:40)
[2020-06-04] MEDS: Multivit/Ca/Min/Fe/FA 1 TAB TABLET PO SCH (08:40)
[2020-06-04] MEDS: Furosemide 20 MG/2 ML VIAL IVP SCH (08:41)
[2020-06-04] MEDS: Insulin LISPRO 300 UNITS/3 ML VIAL SUBQ SCH ×3 (08:41→16:44)
[2020-06-04] MEDS: FLUoxetine 20 MG CAPSULE PO SCH (20:12)
[2020-06-04] MEDS: Gabapentin 300 MG CAPSULE PO SCH (20:13)
[2020-06-04] MEDS: Insulin DETEMIR 100 UNIT/ML X5UNITS SUBQ SCH (20:13)
[2020-06-05] MEDS: Ipratropium 1 PUFF INHALER IH SCH ×6 (04:10→23:55)
[2020-06-05] MEDS: Saline Nasal Spray 44 ML BOTTLE NS SCH ×5 (05:07→19:57)
[2020-06-05] MEDS: *HR* Enoxaparin 40 MG/0.4 ML SYRINGE SQ SCH (05:24)
[2020-06-05 05:30] LABS: Eosinophils % 0.5 %; Hematocrit 37.7 % (35.3-44.9); Hemoglobin 11.9 g/dL (11.5-15.4); Immature Granulocytes % 1.2 % (0-4); Lymphocytes % 19.1 %; Mean Corpuscular HGB Conc 31.6 g/dL (31.6-35.5); Mean Corpuscular Hemoglobin 27.2 pg (28.0-33.3); Mean Corpuscular Volume 86.1 fL (83.0-100.0); Mean Platelet Volume 9.2 fL (9.4-12.4); Monocytes % 5.8 %; Platelet Count 322 K/mcL (140-400); Red Blood Count 4.38 M/mcL (3.82-4.97); Red Cell Distribution Width 13.1 % (11.5-14.5); Segmented Neutrophils % 73.3 %; White Blood Count 7.7 K/mcL (4.3-11.1)
[2020-06-05 05:31] LABS: Basophils % 0.1 %; Lymphocytes # 1.5 K/mcL (0.6-4.6); Monocytes # 0.5 K/mcL (0.0-1.3); Neutrophils # 5.7 K/mcL (1.6-8.9)
[2020-06-05 05:55] LABS: BUN/Creatinine Ratio 44 (6-26); Blood Urea Nitrogen 34 mg/dL (8-23); Calcium 9.5 mg/dL (8.6-10.3); Carbon Dioxide 30 mEq/L (23-29); Chloride 94 mEq/L (98-107); Glucose 163 mg/dL (70-105); Osmolality,Calculated 289 (280-300); Potassium 3.6 mEq/L (3.5-5.1); Sodium 134 mEq/L (136-145); eGFR For African Americans > 60 (> 60); eGFR For Non-African Americans > 60 (> 60)
[2020-06-05 06:06] LABS: Ferritin 456 ng/mL (10-120)
[2020-06-05] MEDS: Furosemide 20 MG/2 ML VIAL IVP SCH (08:36)
[2020-06-05] MEDS: Dexamethasone Sodium Phos/PF 10 MG/ML VIAL IVP SCH (08:36)
[2020-06-05] MEDS: Chlorhexidine Rinse 15 ML MOUTHWASH MM SCH ×2 (08:36→19:57)
[2020-06-05] MEDS: Insulin LISPRO 300 UNITS/3 ML VIAL SUBQ SCH ×4 (08:36→20:13)
[2020-06-05] MEDS: Artificial Tears SOLN 15 ML BOTTLE BOTH EYES SCH ×2 (08:36→19:57)
[2020-06-05] MEDS: Multivit/Ca/Min/Fe/FA 1 TAB TABLET PO SCH (08:37)
[2020-06-05] MEDS: Cholecalciferol (D-3) 1,000 UNIT (25MCG) TABLET PO SCH (08:37)
[2020-06-05 09:37] LABS: C-Reactive Protein 19 mg/L (Less than 10)
[2020-06-05] MEDS: Insulin DETEMIR 100 UNIT/ML X5UNITS SUBQ SCH (19:57)
[2020-06-05] MEDS: Gabapentin 300 MG CAPSULE PO SCH (19:57)
[2020-06-05] MEDS: FLUoxetine 20 MG CAPSULE PO SCH (19:58)
[2020-06-05] MEDS ORDERED: Dextrose Gel 15 GM/37.5 ML TUBE PO PRN ×2 (20:03)
[2020-06-05] MEDS ORDERED: *HR* Dextrose 50 % in Water (Vial) 50 ML VIAL IVP PRN (20:03)
[2020-06-05] MEDS ORDERED: D5% in Water 1,000 ML IVC PRN (20:03)
[2020-06-06] MEDS: Ipratropium 1 PUFF INHALER IH SCH ×6 (04:45→23:36)
[2020-06-06] MEDS: Saline Nasal Spray 44 ML BOTTLE NS SCH ×6 (04:45→19:42)
[2020-06-06] MEDS: *HR* Enoxaparin 40 MG/0.4 ML SYRINGE SQ SCH (05:55)
[2020-06-06 06:49] LABS: Basophils % 0.1 %; Eosinophils # 0.1 K/mcL (0.0-0.6); Eosinophils % 0.6 %; Hematocrit 36.1 % (35.3-44.9); Hemoglobin 11.8 g/dL (11.5-15.4); Immature Granulocytes % 1.5 % (0-4); Lymphocytes # 1.7 K/mcL (0.6-4.6); Lymphocytes % 19.8 %; Mean Corpuscular HGB Conc 32.7 g/dL (31.6-35.5); Mean Corpuscular Hemoglobin 28.4 pg (28.0-33.3); Mean Platelet Volume 9.3 fL (9.4-12.4); Monocytes # 0.5 K/mcL (0.0-1.3); Neutrophils # 6.3 K/mcL (1.6-8.9); Platelet Count 317 K/mcL (140-400); Red Blood Count 4.15 M/mcL (3.82-4.97); Red Cell Distribution Width 12.9 % (11.5-14.5); White Blood Count 8.7 K/mcL (4.3-11.1)
[2020-06-06 08:04] LABS: BUN/Creatinine Ratio 42 (6-26); Blood Urea Nitrogen 35 mg/dL (8-23); Calcium 9.5 mg/dL (8.6-10.3); Carbon Dioxide 33 mEq/L (23-29); Chloride 91 mEq/L (98-107); Glucose 113 mg/dL (70-105); Osmolality,Calculated 285 (280-300); Potassium 3.6 mEq/L (3.5-5.1); Sodium 133 mEq/L (136-145); eGFR For African Americans > 60 (> 60); eGFR For Non-African Americans > 60 (> 60)
[2020-06-06] MEDS: Insulin LISPRO 300 UNITS/3 ML VIAL SUBQ SCH ×5 (08:18→19:41)
[2020-06-06] MEDS: Multivit/Ca/Min/Fe/FA 1 TAB TABLET PO SCH (08:23)
[2020-06-06] MEDS: Furosemide 20 MG/2 ML VIAL IVP SCH (08:23)
[2020-06-06] MEDS: Cholecalciferol (D-3) 1,000 UNIT (25MCG) TABLET PO SCH (08:23)
[2020-06-06] MEDS: Chlorhexidine Rinse 15 ML MOUTHWASH MM SCH ×2 (08:23→19:42)
[2020-06-06] MEDS: Dexamethasone Sodium Phos/PF 10 MG/ML VIAL IVP SCH (08:24)
[2020-06-06] MEDS: Artificial Tears SOLN 15 ML BOTTLE BOTH EYES SCH ×2 (08:44→19:42)
[2020-06-06] MEDS ORDERED: Insulin LISPRO 300 UNITS/3 ML VIAL SUBQ SCH (16:57)
[2020-06-06] MEDS: Gabapentin 300 MG CAPSULE PO SCH (19:42)
[2020-06-06] MEDS: Insulin DETEMIR 100 UNIT/ML X5UNITS SUBQ SCH (19:42)
[2020-06-06] MEDS: FLUoxetine 20 MG CAPSULE PO SCH (19:42)
[2020-06-07] MEDS: Ipratropium 1 PUFF INHALER IH SCH ×6 (03:49→23:45)
[2020-06-07] MEDS: Saline Nasal Spray 44 ML BOTTLE NS SCH ×6 (05:12→20:51)
[2020-06-07] MEDS: *HR* Enoxaparin 40 MG/0.4 ML SYRINGE SQ SCH (05:16)
[2020-06-07] MEDS: Insulin LISPRO 300 UNITS/3 ML VIAL SUBQ SCH ×3 (07:58→16:35)
[2020-06-07] MEDS: Multivit/Ca/Min/Fe/FA 1 TAB TABLET PO SCH (08:16)
[2020-06-07] MEDS: Chlorhexidine Rinse 15 ML MOUTHWASH MM SCH ×2 (08:16→20:51)
[2020-06-07] MEDS: Cholecalciferol (D-3) 1,000 UNIT (25MCG) TABLET PO SCH (08:16)
[2020-06-07] MEDS: Artificial Tears SOLN 15 ML BOTTLE BOTH EYES SCH ×2 (08:17→20:51)
[2020-06-07] MEDS: Furosemide 20 MG/2 ML VIAL IVP SCH (08:17)
[2020-06-07] MEDS: Dexamethasone Sodium Phos/PF 10 MG/ML VIAL IVP SCH (08:17)
[2020-06-07] MEDS: FLUoxetine 20 MG CAPSULE PO SCH (20:51)
[2020-06-07] MEDS: Gabapentin 300 MG CAPSULE PO SCH (20:51)
[2020-06-07] MEDS: Loratadine 10 MG TABLET PO SCH (20:51)
[2020-06-07] MEDS: Insulin DETEMIR 100 UNIT/ML X5UNITS SUBQ SCH (20:51)
[2020-06-07] MEDS ORDERED: Insulin DETEMIR 100 UNIT/ML X5UNITS SUBQ SCH (21:00)
[2020-06-08] MEDS: Ipratropium 1 PUFF INHALER IH SCH ×5 (04:27→20:08)
[2020-06-08] MEDS: Saline Nasal Spray 44 ML BOTTLE NS SCH ×6 (04:44→20:22)
[2020-06-08] MEDS: *HR* Enoxaparin 40 MG/0.4 ML SYRINGE SQ SCH (05:24)
[2020-06-08 07:07] LABS: Eosinophils % 0.4 %; Hematocrit 35.9 % (35.3-44.9); Hemoglobin 11.8 g/dL (11.5-15.4); Immature Granulocytes % 1.1 % (0-4); Lymphocytes # 1.5 K/mcL (0.6-4.6); Lymphocytes % 17.8 %; Mean Corpuscular HGB Conc 32.9 g/dL (31.6-35.5); Mean Corpuscular Hemoglobin 28.5 pg (28.0-33.3); Mean Corpuscular Volume 86.7 fL (83.0-100.0); Mean Platelet Volume 9.7 fL (9.4-12.4); Monocytes # 0.4 K/mcL (0.0-1.3); Neutrophils # 6.4 K/mcL (1.6-8.9); Platelet Count 309 K/mcL (140-400); Red Blood Count 4.14 M/mcL (3.82-4.97); Segmented Neutrophils % 75.7 %; White Blood Count 8.5 K/mcL (4.3-11.1)
[2020-06-08 07:29] LABS: BUN/Creatinine Ratio 42 (6-26); Blood Urea Nitrogen 32 mg/dL (8-23); Calcium 9.5 mg/dL (8.6-10.3); Carbon Dioxide 34 mEq/L (23-29); Chloride 90 mEq/L (98-107); Glucose 143 mg/dL (70-105); Magnesium 2.1 mg/dL (1.6-2.6); Osmolality,Calculated 285 (280-300); Potassium 3.5 mEq/L (3.5-5.1); Sodium 133 mEq/L (136-145); eGFR For African Americans > 60 (> 60); eGFR For Non-African Americans > 60 (> 60)
[2020-06-08] MEDS: Insulin LISPRO 300 UNITS/3 ML VIAL SUBQ SCH ×3 (09:43→17:59)
[2020-06-08] MEDS: Multivit/Ca/Min/Fe/FA 1 TAB TABLET PO SCH (09:46)
[2020-06-08] MEDS: Chlorhexidine Rinse 15 ML MOUTHWASH MM SCH ×2 (09:46→20:21)
[2020-06-08] MEDS: Cholecalciferol (D-3) 1,000 UNIT (25MCG) TABLET PO SCH (09:46)
[2020-06-08] MEDS: Dexamethasone Sodium Phos/PF 10 MG/ML VIAL IVP SCH (09:46)
[2020-06-08] MEDS: Furosemide 20 MG/2 ML VIAL IVP SCH (09:46)
[2020-06-08] MEDS: Insulin DETEMIR 100 UNIT/ML X5UNITS SUBQ SCH ×2 (09:47→20:23)
[2020-06-08] MEDS: Artificial Tears SOLN 15 ML BOTTLE BOTH EYES SCH ×2 (09:48→20:22)
[2020-06-08 11:15] LABS: Estimated Average Glucose 177 mg/dl; Hemoglobin A1C 7.8 %
[2020-06-08] MEDS ORDERED: Insulin DETEMIR 100 UNIT/ML X5UNITS SUBQ ONE (17:22)
[2020-06-08] MEDS: Loratadine 10 MG TABLET PO SCH (20:23)
[2020-06-08] MEDS: FLUoxetine 20 MG CAPSULE PO SCH (20:23)
[2020-06-08] MEDS: Gabapentin 300 MG CAPSULE PO SCH (20:23)
[2020-06-08] MEDS ORDERED: Insulin LISPRO 300 UNITS/3 ML VIAL SUBQ SCH (21:00)
[2020-06-09] MEDS: Ipratropium 1 PUFF INHALER IH SCH ×7 (00:05→22:52)
[2020-06-09] MEDS: Saline Nasal Spray 44 ML BOTTLE NS SCH ×6 (00:28→20:32)
[2020-06-09 00:55] LABS: Basophils % 0.1 %; Hematocrit 33.7 % (35.3-44.9); Immature Granulocytes % 1.1 % (0-4); Lymphocytes # 1.3 K/mcL (0.6-4.6); Lymphocytes % 13.4 %; Mean Corpuscular HGB Conc 32.6 g/dL (31.6-35.5); Mean Corpuscular Hemoglobin 28.3 pg (28.0-33.3); Mean Corpuscular Volume 86.6 fL (83.0-100.0); Mean Platelet Volume 9.8 fL (9.4-12.4); Monocytes # 0.5 K/mcL (0.0-1.3); Monocytes % 4.5 %; Neutrophils # 8.1 K/mcL (1.6-8.9); Platelet Count 288 K/mcL (140-400); Red Blood Count 3.89 M/mcL (3.82-4.97); Segmented Neutrophils % 80.9 %
[2020-06-09 01:07] LABS: BUN/Creatinine Ratio 46 (6-26); Blood Urea Nitrogen 36 mg/dL (8-23); Calcium 9.3 mg/dL (8.6-10.3); Carbon Dioxide 33 mEq/L (23-29); Chloride 89 mEq/L (98-107); Glucose 206 mg/dL (70-105); Magnesium 2.1 mg/dL (1.6-2.6); Osmolality,Calculated 286 (280-300); Potassium 3.7 mEq/L (3.5-5.1); Sodium 131 mEq/L (136-145); eGFR For African Americans > 60 (> 60); eGFR For Non-African Americans > 60 (> 60)
[2020-06-09] MEDS: *HR* Enoxaparin 40 MG/0.4 ML SYRINGE SQ SCH (04:37)
[2020-06-09] MEDS: Insulin LISPRO 300 UNITS/3 ML VIAL SUBQ SCH ×3 (07:21→16:17)
[2020-06-09] MEDS: Artificial Tears SOLN 15 ML BOTTLE BOTH EYES SCH ×2 (08:40→20:32)
[2020-06-09] MEDS: Dexamethasone Sodium Phos/PF 10 MG/ML VIAL IVP SCH (08:40)
[2020-06-09] MEDS: Furosemide 20 MG/2 ML VIAL IVP SCH (08:40)
[2020-06-09] MEDS: Insulin DETEMIR 100 UNIT/ML X5UNITS SUBQ SCH ×2 (08:40→20:41)
[2020-06-09] MEDS: Chlorhexidine Rinse 15 ML MOUTHWASH MM SCH ×2 (08:41→20:29)
[2020-06-09] MEDS: Multivit/Ca/Min/Fe/FA 1 TAB TABLET PO SCH (08:41)
[2020-06-09] MEDS: Cholecalciferol (D-3) 1,000 UNIT (25MCG) TABLET PO SCH (08:41)
[2020-06-09] MEDS ORDERED: Dexamethasone Sodium Phos/PF 10 MG/ML VIAL IVP ONE (19:01)
[2020-06-09] MEDS: FLUoxetine 20 MG CAPSULE PO SCH (20:29)
[2020-06-09] MEDS: Gabapentin 300 MG CAPSULE PO SCH (20:29)
[2020-06-09] MEDS: Loratadine 10 MG TABLET PO SCH (20:31)
[2020-06-10] MEDS: Saline Nasal Spray 44 ML BOTTLE NS SCH ×6 (01:19→21:19)
[2020-06-10] MEDS: Ipratropium 1 PUFF INHALER IH SCH ×6 (03:20→23:01)
[2020-06-10 05:42] LABS: Basophils % 0.1 %; Hematocrit 33.9 % (35.3-44.9); Immature Granulocytes % 0.8 % (0-4); Lymphocytes # 1.1 K/mcL (0.6-4.6); Lymphocytes % 11.7 %; Mean Corpuscular HGB Conc 32.4 g/dL (31.6-35.5); Mean Corpuscular Hemoglobin 28.6 pg (28.0-33.3); Mean Corpuscular Volume 88.1 fL (83.0-100.0); Mean Platelet Volume 10.2 fL (9.4-12.4); Monocytes # 0.2 K/mcL (0.0-1.3); Monocytes % 2.5 %; Neutrophils # 7.7 K/mcL (1.6-8.9); Platelet Count 273 K/mcL (140-400); Red Blood Count 3.85 M/mcL (3.82-4.97); Red Cell Distribution Width 13.3 % (11.5-14.5); Segmented Neutrophils % 84.9 %; White Blood Count 9.1 K/mcL (4.3-11.1)
[2020-06-10] MEDS: *HR* Enoxaparin 40 MG/0.4 ML SYRINGE SQ SCH (05:42)
[2020-06-10 06:00] LABS: BUN/Creatinine Ratio 45 (6-26); Blood Urea Nitrogen 37 mg/dL (8-23); Calcium 9.5 mg/dL (8.6-10.3); Carbon Dioxide 33 mEq/L (23-29); Chloride 88 mEq/L (98-107); Glucose 202 mg/dL (70-105); Magnesium 2.1 mg/dL (1.6-2.6); Osmolality,Calculated 288 (280-300); Potassium 3.9 mEq/L (3.5-5.1); Sodium 132 mEq/L (136-145); eGFR For African Americans > 60 (> 60); eGFR For Non-African Americans > 60 (> 60)
[2020-06-10] MEDS: Multivit/Ca/Min/Fe/FA 1 TAB TABLET PO SCH (08:31)
[2020-06-10] MEDS: Insulin LISPRO 300 UNITS/3 ML VIAL SUBQ SCH ×3 (08:31→16:42)
[2020-06-10] MEDS: Insulin DETEMIR 100 UNIT/ML X5UNITS SUBQ SCH ×2 (08:31→21:21)
[2020-06-10] MEDS: Artificial Tears SOLN 15 ML BOTTLE BOTH EYES SCH ×2 (08:31→21:20)
[2020-06-10] MEDS: Chlorhexidine Rinse 15 ML MOUTHWASH MM SCH ×2 (08:31→21:20)
[2020-06-10] MEDS: Furosemide 40 MG TABLET PO SCH (08:31)
[2020-06-10] MEDS: Cholecalciferol (D-3) 1,000 UNIT (25MCG) TABLET PO SCH (08:31)
[2020-06-10] MEDS ORDERED: Simethicone 80 MG TAB.CHEW PO PRN (15:57)
[2020-06-10] MEDS: FLUoxetine 20 MG CAPSULE PO SCH (21:20)
[2020-06-10] MEDS: Gabapentin 300 MG CAPSULE PO SCH (21:21)
[2020-06-10] MEDS: Loratadine 10 MG TABLET PO SCH (21:21)
[2020-06-11] MEDS: Saline Nasal Spray 44 ML BOTTLE NS SCH ×5 (00:54→17:12)
[2020-06-11] MEDS: Ipratropium 1 PUFF INHALER IH SCH ×4 (03:41→16:15)
[2020-06-11 05:49] LABS: Basophils % 0.3 %; Eosinophils % 0.6 %; Hematocrit 34.6 % (35.3-44.9); Hemoglobin 11.2 g/dL (11.5-15.4); Immature Granulocytes % 0.6 % (0-4); Lymphocytes # 1.6 K/mcL (0.6-4.6); Lymphocytes % 24.5 %; Mean Corpuscular HGB Conc 32.4 g/dL (31.6-35.5); Mean Corpuscular Hemoglobin 28.5 pg (28.0-33.3); Monocytes # 0.5 K/mcL (0.0-1.3); Neutrophils # 4.3 K/mcL (1.6-8.9); Platelet Count 245 K/mcL (140-400); Red Blood Count 3.93 M/mcL (3.82-4.97); Red Cell Distribution Width 13.5 % (11.5-14.5); White Blood Count 6.5 K/mcL (4.3-11.1)
[2020-06-11 06:07] LABS: BUN/Creatinine Ratio 45 (6-26); Blood Urea Nitrogen 38 mg/dL (8-23); Calcium 9.4 mg/dL (8.6-10.3); Carbon Dioxide 36 mEq/L (23-29); Chloride 90 mEq/L (98-107); Glucose 67 mg/dL (70-105); Osmolality,Calculated 289 (280-300); Sodium 136 mEq/L (136-145); eGFR For African Americans > 60 (> 60); eGFR For Non-African Americans > 60 (> 60)
[2020-06-11] MEDS: *HR* Enoxaparin 40 MG/0.4 ML SYRINGE SQ SCH (06:14)
[2020-06-11] MEDS: Insulin LISPRO 300 UNITS/3 ML VIAL SUBQ SCH ×3 (07:24→16:35)
[2020-06-11] MEDS: Multivit/Ca/Min/Fe/FA 1 TAB TABLET PO SCH (09:22)
[2020-06-11] MEDS: Chlorhexidine Rinse 15 ML MOUTHWASH MM SCH (09:22)
[2020-06-11] MEDS: Furosemide 40 MG TABLET PO SCH (09:22)
[2020-06-11] MEDS: Cholecalciferol (D-3) 1,000 UNIT (25MCG) TABLET PO SCH (09:22)
[2020-06-11] MEDS: Insulin DETEMIR 100 UNIT/ML X5UNITS SUBQ SCH (09:24)
[2020-06-11] MEDS: Artificial Tears SOLN 15 ML BOTTLE BOTH EYES SCH (09:24)
[2020-06-11 16:09] VITALS: BP 107/63
== END 2020-06-11 17:39 | DRG 177 ==
LOC: EMEROOARM 20:43 → 2NENU 20:43 → SUATTDRO 22:45 → 2NENU 23:02 → SUATTDRO 05-28 17:06 → 2NENU 05-30 15:26 → 3BNU 06-08 18:54
PROVIDERS: ADMIT Family Medicine; ATTEND Pharmacist